=== PATIENT | female | born 1940 | race African-American/Black ===

== ENCOUNTER 2024-10-27 00:18 | Inpatient (IN) | payer MEDICARE, OTHER ==
[~2024-10-27] VITALS: Ht 160 cm; Wt 55.8 kg
[2024-10-27] MEDS ORDERED: POTA20TA83 PO (00:44)
[2024-10-27] MEDS ORDERED: PANT40TA49 PO (00:44)
[2024-10-27] MEDS ORDERED: ASPI81TA31 (00:44)
[2024-10-27] MEDS ORDERED: FURO-151 PO (00:44)
[2024-10-27] MEDS ORDERED: AMLO-212 PO (00:44)
[2024-10-27] MEDS ORDERED: ENOX30DI5 SUBCUT (00:44)
[2024-10-27] MEDS ORDERED: DOCU-141 PO (00:44)
[2024-10-27] MEDS ORDERED: CRAN450T3 PO (00:44)
[2024-10-27] MEDS ORDERED: ATOR20TA PO (00:44)
[2024-10-27] MEDS ORDERED: CARV25TA PO (00:44)
[2024-10-27] MEDS ORDERED: SACU1TAB7 PO (00:44)
[2024-10-27] MEDS ORDERED: FAMO-284 PO (00:44)
[2024-10-27] MEDS ORDERED: LEVE500T9 PO (00:44)
[2024-10-27] MEDS ORDERED: CHOL100062 PO (00:44)
[2024-10-27 01:17] LABS: BASOPHILS # (AUTO) 0.1 K/UL (0.0-0.2); BASOPHILS % (AUTO) 1.1 % (0.0-2.0); EOSINOPHILS # (AUTO) 0.6 K/uL (0.0-0.7); EOSINOPHILS % (AUTO) 9.2 % (0.0-7.0); HEMATOCRIT 34.9 % (31.2-41.9); HEMOGLOBIN 11.7 g/dL (10.9-14.3); LYMPHOCYTES # (AUTO) 1.9 K/uL (0.8-4.8); LYMPHOCYTES % (AUTO) 29.6 % (20.5-51.5); MEAN CORPUSCULAR HEMOGLOBIN 30.2 uug (24.7-32.8); MEAN CORPUSCULAR HGB CONC 33 g/dL (32.3-35.6); MEAN CORPUSCULAR VOLUME 90.3 fL (75.5-95.3); MONOCYTES # (AUTO) 0.8 K/uL (0.1-1.30); MONOCYTES % (AUTO) 13.1 % (0.0-11.0); NEUTROPHILS # (AUTO) 2.9 K/uL (1.8-8.9); PLATELET COUNT (AUTO) 220 K/uL (179-408); RED BLOOD CELL COUNT(AUTO) 3.86 MIL/uL (3.63-4.92); RED CELL DISTRIBUTION WIDTH 14.9 % (12.3-17.7); WHITE BLOOD COUNT (AUTO) 6.3 K/uL (3.8-11.8)
[2024-10-27 01:19] LABS: DIFFERENTIAL COMMENT 1
[2024-10-27 01:24] LABS: CALCIUM 9.7 mg/dL (8.5-10.1); CARBON DIOXIDE 24 mmol/L (21-32); CHLORIDE 110 mmol/L (98-107); CREATININE 1.1 mg/dL (0.6-1.3); GLUCOSE 95 mg/dL (74-106); POTASSIUM 4.4 mmol/L (3.5-5.1); SODIUM SERUM 143 mmol/L (136-145); UREA NITROGEN, BLOOD 32 mg/dL (7-18)
[2024-10-27 01:36] LABS: ALANINE AMINOTRANSFERASE 19 U/L (14-59); ALBUMIN 3.5 g/dL (3.4-5.0); ALKALINE PHOSPHATASE 75 U/L (50-136); ASPARTATE AMINOTRANSFERASE 15 U/L (15-37); BILIRUBIN,DIRECT 0.1 mg/dL (0.0-0.2); BILIRUBIN,TOTAL 0.5 mg/dL (0.2-1.0); NT-PRO BNP 3341 pg/mL (0-125); TOTAL PROTEIN, SERUM 7.2 g/dL (6.4-8.2)
[2024-10-27] MEDS ORDERED: IOHEXOL 350 100 ML INFUS..BTL ONE (02:49)
[2024-10-27] MEDS ORDERED: SWABABLE VALVE TRANSFER SET EA MC ONE (02:49)
[2024-10-27] MEDS ORDERED: IV NORMAL SALINE 250 ML IV ONE (02:50)
[2024-10-27] MEDS ORDERED: ONDANSETRON 4 MG/2 ML VIAL IV PRN (08:15)
[2024-10-27] MEDS ORDERED: MAGNESIUM HYDROXIDE 30 ML LIQUID UDC PO PRN (08:15)
[2024-10-27] MEDS ORDERED: REMEDY ESSENTIAL ZINC PASTE 113 GM TP PRN (08:15)
[2024-10-27] MEDS ORDERED: FUROSEMIDE 20 MG/2 ML VIAL ONE (08:40)
[2024-10-27] MEDS: FUROSEMIDE 20 MG/2 ML VIAL IV ONE (08:59)
[2024-10-27] MEDS ORDERED: ASPI81TA31 PO (10:52)
[2024-10-27] MEDS ORDERED: HYDR-4209 PO (11:01)
[2024-10-27] MEDS ORDERED: PETR113P TP (11:06)
[2024-10-27] MEDS ORDERED: ACET-2154 PO (11:07)
[2024-10-27 12:00] VITALS: BP 116/87; TEMP 98; O2SAT 100
[2024-10-27 16:00] VITALS: BP 152/57; TEMP 98.3
[2024-10-27] MEDS: levETIRAcetam 500 MG TABLET PO SCH (17:19)
[2024-10-27] MEDS: CEFTRIAXONE 1 G in IV DEXTROSE 5% 50 ML IV SCH (18:52)
[2024-10-27 19:15] VITALS: BP 154/41; TEMP 98.9; O2SAT 99
[2024-10-27] MEDS: AZITHROMYCIN IV 500 MG in IV DEXTROSE 5% 250 ML IV SCH (19:40)
[2024-10-27] MEDS ORDERED: Medication Not On Formulary EA (Sacubitril/Valsartan (Entresto 49 mg-51 mg Tablet) 1 TAB PO SCH (21:00)
[2024-10-27] MEDS: ATORVASTATIN 20 MG TABLET PO SCH (21:09)
[2024-10-27] MEDS: REMEDY ESSENTIAL ZINC PASTE 113 GM TP SCH (21:10)
[2024-10-27] MEDS: VALSARTAN 80 MG TABLET PO SCH (21:17)
[2024-10-27] MEDS: CARVEDILOL 25 MG TABLET PO SCH (21:17)
[2024-10-28] VITALS (8 sets, daily range): BP systolic 113–167; BP diastolic 41–66; TEMP 97.8–99.7; O2SAT 97–100
[2024-10-28] MEDS: PANTOPRAZOLE SODIUM 40 MG TABLET.DR PO SCH (06:11)
[2024-10-28 06:55] LABS: BASOPHILS % (AUTO) 0.5 % (0.0-2.0); EOSINOPHILS # (AUTO) 0.5 K/uL (0.0-0.7); EOSINOPHILS % (AUTO) 7.1 % (0.0-7.0); HEMATOCRIT 33.8 % (31.2-41.9); HEMOGLOBIN 11.4 g/dL (10.9-14.3); LYMPHOCYTES # (AUTO) 2.4 K/uL (0.8-4.8); LYMPHOCYTES % (AUTO) 32.8 % (20.5-51.5); MEAN CORPUSCULAR HEMOGLOBIN 30.4 uug (24.7-32.8); MEAN CORPUSCULAR HGB CONC 34 g/dL (32.3-35.6); MEAN CORPUSCULAR VOLUME 90.1 fL (75.5-95.3); MONOCYTES # (AUTO) 0.9 K/uL (0.1-1.30); MONOCYTES % (AUTO) 12.9 % (0.0-11.0); NEUTROPHILS # (AUTO) 3.4 K/uL (1.8-8.9); NEUTROPHILS % (AUTO) 46.7 % (38.5-71.5); PLATELET COUNT (AUTO) 219 K/uL (179-408); RED BLOOD CELL COUNT(AUTO) 3.75 MIL/uL (3.63-4.92); RED CELL DISTRIBUTION WIDTH 14.5 % (12.3-17.7); WHITE BLOOD COUNT (AUTO) 7.3 K/uL (3.8-11.8)
[2024-10-28 07:05] LABS: DIFFERENTIAL COMMENT 1
[2024-10-28 07:13] LABS: CALCIUM 9.3 mg/dL (8.5-10.1); CARBON DIOXIDE 24 mmol/L (21-32); CHLORIDE 110 mmol/L (98-107); CREATININE 1.4 mg/dL (0.6-1.3); GLUCOSE 88 mg/dL (74-106); MAGNESIUM 2.3 mg/dL (1.8-2.4); PHOSPHOROUS 3.8 mg/dL (2.5-4.9); POTASSIUM 4.4 mmol/L (3.5-5.1); SODIUM SERUM 143 mmol/L (136-145); UREA NITROGEN, BLOOD 37 mg/dL (7-18)
[2024-10-28] MEDS: CHOLECALCIFEROL 1,000 UNIT TABLET PO SCH (09:01)
[2024-10-28] MEDS: ASPIRIN 81 MG TAB.CHEW PO SCH (09:01)
[2024-10-28] MEDS: DOCUSATE SODIUM 100 MG CAPSULE PO SCH (09:01)
[2024-10-28] MEDS: AMLODIPINE 5 MG TABLET PO SCH (09:02)
[2024-10-28] MEDS: ENOXAPARIN SODIUM 30 MG/0.3 ML DISP.SYRIN SUBCUT SCH (09:06)
[2024-10-28] MEDS: AZITHROMYCIN 250 MG TABLET PO SCH (20:13)
[2024-10-28] MEDS: ACETAMINOPHEN 325 MG TABLET PO PRN (20:14)
[2024-10-29 06:05] VITALS: BP 121/47; TEMP 98.5; O2SAT 97
[2024-10-29 06:54] LABS: BASOPHILS # (AUTO) 0.1 K/UL (0.0-0.2); EOSINOPHILS # (AUTO) 0.5 K/uL (0.0-0.7); EOSINOPHILS % (AUTO) 6.7 % (0.0-7.0); HEMATOCRIT 35.2 % (31.2-41.9); HEMOGLOBIN 11.8 g/dL (10.9-14.3); LYMPHOCYTES # (AUTO) 2.3 K/uL (0.8-4.8); LYMPHOCYTES % (AUTO) 32.3 % (20.5-51.5); MEAN CORPUSCULAR HEMOGLOBIN 30.2 uug (24.7-32.8); MEAN CORPUSCULAR HGB CONC 34 g/dL (32.3-35.6); MEAN CORPUSCULAR VOLUME 90.2 fL (75.5-95.3); MONOCYTES # (AUTO) 1.1 K/uL (0.1-1.30); MONOCYTES % (AUTO) 15.4 % (0.0-11.0); NEUTROPHILS # (AUTO) 3.2 K/uL (1.8-8.9); NEUTROPHILS % (AUTO) 44.6 % (38.5-71.5); PLATELET COUNT (AUTO) 217 K/uL (179-408); RED CELL DISTRIBUTION WIDTH 14.3 % (12.3-17.7); WHITE BLOOD COUNT (AUTO) 7.2 K/uL (3.8-11.8)
[2024-10-29 06:57] LABS: DIFFERENTIAL COMMENT 1
[2024-10-29 07:02] LABS: CALCIUM 9.6 mg/dL (8.5-10.1); CARBON DIOXIDE 22 mmol/L (21-32); CHLORIDE 108 mmol/L (98-107); CREATININE 1.6 mg/dL (0.6-1.3); GLUCOSE 96 mg/dL (74-106); POTASSIUM 4.3 mmol/L (3.5-5.1); SODIUM SERUM 141 mmol/L (136-145); UREA NITROGEN, BLOOD 47 mg/dL (7-18)
[2024-10-29 09:33] VITALS: BP 144/45; TEMP 98; O2SAT 98
[2024-10-29 11:32] LABS: BAND % (MANUAL) 4 % (0-10); EOSINOPHILS % (MANUAL) 4 % (0-8); LYMPHOCYTES % (MANUAL) 30 % (20-40); MONOCYTES % (MANUAL) 14 % (2-10); NEUTROPHILS % (MANUAL) 48 % (42-75)
[2024-10-29 11:33] LABS: PLATELET ESTIMATE ADEQUATE
[2024-10-29 11:38] VITALS: BP 151/44; TEMP 98.3; O2SAT 98
[2024-10-29 16:05] VITALS: BP 122/38; TEMP 98.1; O2SAT 96
[2024-10-29 19:47] VITALS: BP 143/34; TEMP 98.7; O2SAT 100
[2024-10-30 04:41] VITALS: BP 109/47; TEMP 97.9; O2SAT 98
[2024-10-30 08:15] VITALS: BP 137/43; TEMP 98.1; O2SAT 99
[2024-10-30 08:38] LABS: BASOPHILS # (AUTO) 0.1 K/UL (0.0-0.2); BASOPHILS % (AUTO) 1.2 % (0.0-2.0); EOSINOPHILS # (AUTO) 0.6 K/uL (0.0-0.7); EOSINOPHILS % (AUTO) 8.7 % (0.0-7.0); HEMATOCRIT 34.4 % (31.2-41.9); HEMOGLOBIN 11.4 g/dL (10.9-14.3); LYMPHOCYTES # (AUTO) 2.1 K/uL (0.8-4.8); LYMPHOCYTES % (AUTO) 32.7 % (20.5-51.5); MEAN CORPUSCULAR HEMOGLOBIN 29.7 uug (24.7-32.8); MEAN CORPUSCULAR HGB CONC 33 g/dL (32.3-35.6); MEAN CORPUSCULAR VOLUME 89.9 fL (75.5-95.3); MONOCYTES # (AUTO) 0.9 K/uL (0.1-1.30); MONOCYTES % (AUTO) 14.3 % (0.0-11.0); NEUTROPHILS # (AUTO) 2.8 K/uL (1.8-8.9); NEUTROPHILS % (AUTO) 43.1 % (38.5-71.5); PLATELET COUNT (AUTO) 228 K/uL (179-408); RED BLOOD CELL COUNT(AUTO) 3.83 MIL/uL (3.63-4.92); RED CELL DISTRIBUTION WIDTH 14.4 % (12.3-17.7); WHITE BLOOD COUNT (AUTO) 6.4 K/uL (3.8-11.8)
[2024-10-30 08:43] LABS: DIFFERENTIAL COMMENT 1
[2024-10-30 08:55] LABS: ALANINE AMINOTRANSFERASE 20 U/L (14-59); ALBUMIN 3.1 g/dL (3.4-5.0); ALKALINE PHOSPHATASE 67 U/L (50-136); ASPARTATE AMINOTRANSFERASE 15 U/L (15-37); BILIRUBIN,TOTAL 0.6 mg/dL (0.2-1.0); CALCIUM 9.1 mg/dL (8.5-10.1); CARBON DIOXIDE 24 mmol/L (21-32); CHLORIDE 108 mmol/L (98-107); CREATININE 1.3 mg/dL (0.6-1.3); GLUCOSE 93 mg/dL (74-106); MAGNESIUM 2.6 mg/dL (1.8-2.4); POTASSIUM 4.6 mmol/L (3.5-5.1); SODIUM SERUM 142 mmol/L (136-145); TOTAL PROTEIN, SERUM 6.6 g/dL (6.4-8.2); UREA NITROGEN, BLOOD 45 mg/dL (7-18)
[2024-10-30] MEDS ORDERED: CEFT1VIA15 IV (10:13)
[2024-10-30] MEDS ORDERED: VALS80TA31 PO (10:13)
[2024-10-30] MEDS ORDERED: AZIT250T13 PO (10:13)
[2024-10-30 11:46] VITALS: BP 136/76; TEMP 97.8; O2SAT 97
[2024-10-30 16:00] VITALS: BP 107/46; TEMP 97.6; O2SAT 97
== END 2024-10-30 21:10 | DRG 291 ==
LOC: ER 00:18 → TELE3 09:16 → MEDSURG3 10-28 10:05
PROVIDERS: ADMIT Nurse Practitioner Acute Care; ATTEND Nurse Practitioner Acute Care
DX: I13.0 Hypertensive heart and chronic kidney disease with heart failure and stage 1 through stage 4 chronic kidney disease, or unspecified chronic kidney disease (principal); I50.33 Acute on chronic diastolic (congestive) heart failure; J15.69 Pneumonia due to other Gram-negative bacteria; D68.59 Other primary thrombophilia; E46 Unspecified protein-calorie malnutrition; F03.94 Unspecified dementia, unspecified severity, with anxiety; G93.40 Encephalopathy, unspecified; N18.9 Chronic kidney disease, unspecified; I48.0 Paroxysmal atrial fibrillation; Z74.01 Bed confinement status; G40.909 Epilepsy, unspecified, not intractable, without status epilepticus; E78.5 Hyperlipidemia, unspecified; I49.5 Sick sinus syndrome; Z95.0 Presence of cardiac pacemaker; Z95.1 Presence of aortocoronary bypass graft; I69.320 Aphasia following cerebral infarction; I25.10 Atherosclerotic heart disease of native coronary artery without angina pectoris; Z79.82 Long term (current) use of aspirin; Z79.899 Other long term (current) drug therapy; R09.89 Other specified symptoms and signs involving the circulatory and respiratory systems; R13.10 Dysphagia, unspecified; K21.9 Gastro-esophageal reflux disease without esophagitis; R60.0 Localized edema
CPT/HCPCS: 36415; 71045; 71275; 80299; 83605; 83735; 84100; 84484; 85025; 87040; 93307; A4663; G0378; J0456; J0696; J1650; J1940; J7050; Q0144; Q9967